=== PATIENT | male | born 1970 | race Caucasian/White ===

== ENCOUNTER 2023-06-01 19:43 | Emergency (ER) | payer OTHER, SELFPAY ==
[2023-06-01 19:44] VITALS: BP 110/67; PULSE 113; RESP 16; TEMP 37.1; O2SAT 95; BMI 34.9
--- NOTE | 2023-06-01 20:04 | EDS_ITS ---
HPI <JOSSY Krishnan - Last Filed: 06/01/23 20:52> History of Present Illness Chief Complaint: Cough Narrative Narrative: Patient is a 52-year-old male with no significant medical history who presents to the emergency department with a significant cough. Patient states the cough started this morning as well as some body aches and chills. Patient does have a history of coughing so hard that he has syncopal episodes. He has been dealing with this with multiple years. Patient states he had an episode like this today while he was sitting at home. This concerned his who brought him to the emerged department. Patient denies any chest pain or shortness of breath. Patient states he feels slightly febrile however is bringing up clear sputum. PFSH <JOSSY Krishnan - Last Filed: 06/01/23 20:52> PFSH Allergy/AdvReac Type Severity Reaction Status Date / Time No Known Allergies Allergy Verified 06/01/23 19:49 Social History Smoking Status: Never smoker ROS <JOSSY Krishnan - Last Filed: 06/01/23 20:52> ROS ED ROS Narrative Constitutional: Negative for fever, chills, weight loss, weakness Eyes: Negative for vision loss, vision change, double vision ENT: Negative for any sore throat, ear pain, congestion Cardiovascular: Negative for any chest pain, tightness, palpitations Respiratory: Negative for any hemoptysis, dyspnea, dyspnea on exertion, orthopnea. Positive for cough, sputum production Gastrointestinal: Negative for any abdominal pain, nausea, vomiting, diarrhea, constipation, blood in stool, blood in vomit : Negative for any urinary frequency, dysuria, retention, blood in urine Muscle skeletal: Negative for any myalgias, arthralgias, neck pain, back pain Neurological: Negative for any headache, paresthesias, dizziness. Positive for syncope Skin: Negative for any rashes, lumps, itching, abrasions, lacerations Psychiatric: Negative for any depression, anxiety, stress, suicidal ideation, homicidal ideation Hematologic: Negative for any easy bruising, excessive bruising, easy bleeding Allergies: Negative for any eczema, hives, rash EXAM <JOSSY Krishnan Last Filed: 06/01/23 20:52> Physical Exam Narrative Exam Narrative: Vital signs reviewed. HEET: Head normocephalic atraumatic, TMs clear bilaterally. Posterior pharynx is clear, moist mucous membranes. Nares clear bilaterally. Neck: Supple with no lymphadenopathy or tenderness. No signs of meningismus. Cardiac: Regular rate and rhythm no murmurs gallops or rubs, equal peripheral pulses bilaterally. Respiratory: Lungs clear to auscultation bilaterally. No chest tenderness. Abdomen: Soft, nontender, nondistended. No abdominal bruit or pulsatile masses. No hepatosplenomegaly Extremities: No peripheral edema, no signs of gross trauma or deformity. Active full range of motion of all extremities. Neuro: Cranial nerves II through XII intact, no focal neurological deficits. Skin: Clean dry and intact with no rash, purpura, petechiae, vesicles or pustules. Backs/flank: No CVA tenderness, no midline spinal tenderness, no deformity. Psych: Normal mood and affect. No SI, HI or acute psychosis. Const Vital Signs: 06/01/23 19:44 06/01/23 20:23 Temperature 98.8 F Temperature Source Temporal Pulse Rate 113 H Respiratory Rate 16 Respiratory Effort Normal Non-Labored Respiratory Depth Normal Respiratory Pattern Normal Blood Pressure 110/67 Blood Pressure Mean 81 Pulse Ox 95 Oxygen Delivery Method Room Air Room Air Positive well nourished and well developed General Appearance ED: well developed <Dr. Sae Stuart MD - Last Filed: 06/01/23 21:04> Physical Exam Const Vital Signs: 06/01/23 19:44 06/01/23 20:23 Temperature 98.8 F Temperature Source Temporal Pulse Rate 113 H Respiratory Rate 16 Respiratory Effort Normal Non-Labored Respiratory Depth Normal Respiratory Pattern Normal Blood Pressure 110/67 Blood Pressure Mean 81 Pulse Ox 95 Oxygen Delivery Method Room Air Room Air MDM <JOSSY Krishnan - Last Filed: 06/01/23 20:52> MDM Radiography Diagnostic Testing: Clinical Impression(s) from Imaging Studies Chest X-Ray 06/01/23 20:08 IMPRESSION: No radiographic evidence of acute cardiopulmonary disease. Electronically Signed: Jose Rafael Marie DO at 20:22 EST , Treatment and Re-Evaluation :: Patient appears generally well, patient appears nontoxic, vital signs are stable. Patient presenting to the emergency department with a harsh cough in which he passed out. Patient does have history of this. He is known to pass out when he coughs. Patient received a two-view chest x-ray to rule out any community-acquired pneumonia, pneumothorax, pleural effusion. Patient received COVID-19, influenza test to rule out any viral-like illness. All radiologic examinations were read, reviewed by the emergency department attending. From these reads, a plan of care will be put in place. 2 view chest x-ray entered by the ER physician was negative. Patient was negative for COVID-19, was positive for influenza A. This does explain the patient's symptoms. Patient will continue to take ibuprofen, Tylenol, he will be discharged home, he will have all for the next 2 days, he is instructed return for any worsening symptoms. All questions answered stable for discharge <Dr. Sae Stuart MD - Last Filed: 06/01/23 21:04> [facility] Narrative Medical decision making narrative: I have personally performed a face to face assessment of the patient and have reviewed the JUAN Note. I performed a substantive portion of the visit including all aspects of the following. My nugent findings include: History is remarkable for syncope after coughing. This is happened once before, 2015. He presents with upper respiratory tract infectious symptoms started yesterday. Last week tested positive for COVID. He denies fever. He denies myalgias or arthralgias. His cough is productive of clear sputum. Exam is remarkable for heart rate of 113. HEENT exam is unremarkable. Lungs are clear to auscultation. Breath sounds are symmetric. Heart is rapid and regular without murmur, gallop or rub. Abdomen is benign. Lower extremity exam is normal. Medical Decision Making patient was placed on the monitor to determine if he has any dysrhythmia. History is consistent with posttussive syncope. Chest x-ray was obtained as well as rapid antigen for COVID. Suspect this is due to viral illness if COVID and influenza rapid antigen are negative. Other additions or changes: [None] Radiography Diagnostic Testing: Clinical Impression(s) from Imaging Studies Chest X-Ray 06/01/23 20:08 IMPRESSION: No radiographic evidence of acute cardiopulmonary disease. Electronically Signed: Jose Rafael Maravillaruzzo, at 20:22 EST , Discharge Plan Triage Chief Complaint: Cough Other Complaint: Shortness of Breath ED Midlevel Provider: Mars Osbrone ED Provider: Sae Stuart Dx/Rx/DC Orders Clinical Impression: Type A influenza Instructions: ED Influenza (Adult) Stand Alone Forms: ED Work / School Excuse Primary Care Provider: Care Physician,No Primary Referrals: NOT,DEFINED [Non-Staff] - Activity Restrictions/Additional Instructions: Please follow-up outpatient. Make sure that you take ibuprofen and Tylenol. Disposition Disposition: Home, Self Care Discharge Date/Time: 06/01/23 20:56
--- NOTE | 2023-06-01 20:08 | RAD_ITS ---
EXAM: XR CHEST, 2 VIEWS CLINICAL INDICATION: cough TECHNIQUE: Frontal and lateral views of the chest. COMPARISON: No relevant prior studies available. FINDINGS: LUNGS AND PLEURAL SPACES: No significant abnormality. No consolidation or edema. No pneumothorax. No effusion. HEART: No significant abnormality. Cardiac silhouette not enlarged. MEDIASTINUM: Central airways and mediastinal contour are unremarkable. BONES/JOINTS: No significant abnormality. No acute fracture. SOFT TISSUES: No significant abnormality. RAD/Chest PA and Lateral IMPRESSION: No radiographic evidence of acute cardiopulmonary disease. Electronically Signed: Jose Rafael Marie DO at 20:22 EST ,
== END 2023-06-01 20:56 | disposition home or self-care (01) ==
PROVIDERS: Emergency Provider Emergency Medicine; Visit Provider Emergency Medicine
DX: J10.1 Influenza due to other identified influenza virus with other respiratory manifestations (principal)
CPT/HCPCS: 71046; 87428; 99282

== ENCOUNTER → 2024-05-12 | Outpatient (CLI) | payer OTHER, SELFPAY ==
--- NOTE | 2024-05-12 16:30 | MRI_ITS ---
STUDY: MRI LEFT ANKLE WITHOUT CONTRAST REASON FOR EXAM: Male, 53 years old. OSTEOARTHRITIS TECHNIQUE: Standardized fat and water weighted pulse sequences were obtained in all 3 orthogonal planes. COMPARISON: None. FINDINGS: Normal subcutis adipose space. Normal posterior tibialis tendon. Normal flexor digitorum longus tendon. Normal flexor hallucis longus tendon. Normal peroneus longus and brevis tendons. Normal tibialis anterior tendon. Normal extensor hallucis longus tendon. Normal extensor digitorum longus tendons. Normal Achilles tendon and teno-osseous insertion. Normal plantar fascia. Normal plantar calcaneal tubercles. Normal intrinsic muscles of the rearfoot. Normal distal tibiofibular syndesmotic ligamentous complex. Normal lateral ligamentous complex. Normal subtalar ligaments and sinus tarsi. Normal deltoid ligamentous complex. Normal plantar calcaneonavicular (spring) ligament. There is trace tibiotalar joint effusion (sagittal STIR series 7 images 11-12). Normal talar dome. Normal subtalar articulations. Normal talonavicular articulation. Normal calcaneocuboid articulation. Normal navicular-cuneiform articulations. MRI/Lower Ext Joint Only (Routine) IMPRESSION: Trace tibiotalar joint effusion. Electronically Signed: Demetris Mathis MD at 9:07 EST ,
== END | disposition home or self-care (01) ==
LOC: MRI 16:29
PROVIDERS: Referring Provider Podiatrist; Visit Provider Podiatrist
DX: M19.072 Primary osteoarthritis, left ankle and foot (principal)
CPT/HCPCS: 73721